=== PATIENT | female | born 1985 | race Hispanic/Latino ===

== ENCOUNTER 2018-12-18 14:04 | Emergency (ER) | payer OTHER ==
[2018-12-18 16:33] LABS: Urine Blood TRACE (NEG); Urine Glucose NEGATIVE (NEG); Urine Protein NEGATIVE (NEG); Urine Specific Gravity 1.015 (1.005-1.030)
--- NOTE | 2018-12-18 16:43 | RAD REPORT ---
EXAM DESCRIPTION: CT - Abdomen Pelvis Wo Contrast - 12/18/2018 4:27 pm CLINICAL HISTORY: Abdominal pain COMPARISON: None. TECHNIQUE: Axial [address] imaging of the abdomen and pelvis was performed without IV contrast. No IV contrast was given because of allergy, abnormal renal function, patient refusal or physician re quest. No oral contrast administered. All CT scans are performed using dose optimization technique as appropriate and may include automated exposure control or mA/KV adjustment according to patient size. FINDINGS: No suspicious findings in the lung bases. The liver, spleen and pancreas show no suspicious findings on non-contrast imaging. Multi stone smiley lithiasis is present. No wall thickening, edema or other evidence for an acute gallbladder process. N o biliary tree dilatation. No hydronephrosis or suspicious renal mass. No no right flank and the No significant adrenal finding. Isodense renal masses and pyelonephritis cannot be excluded in the absence of IV contrast. Urinary b ladder is fully contracted limiting assessment. Normal-sized uterus is present. IUD is in place and appears well positioned. No left ovarian abnormal ity seen. In the right side adnexae extending into the midline upper pelvis there is a large 13 x 10 x 9 centimeter mass. This is predominantly cystic. Fat and calcification components are present. Mini mal amount of free fluid is present in the cul-de-sac. No dilated bowel loops or bowel wall thickening. No free air, free fluid or inflammatory stranding. N o bulky lymphadenopathy. There is a small fat only umbilical hernia. Fat extends into the lower abdom inal wall musculature. No appendicitis findings. No suspicious bony findings. 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 Th is fills much of the pelvis. Minimal free fluid in the pelvis is present and not outside of physiologic limits. This could be seco ndary fluid from the dermoid/teratoma. No acute GI or process seen. Patient does have multi stone cholelithiasis without active gallbladd er process identifiable.
--- NOTE | 2018-12-18 17:08 | ER ---
Nurse's Notes [facility] Name: Judith Malagon Age: 33 yrs Sex: Female : 1985 Arrival Date: 12/18/2018 Time: 14:07 Bed Treatment Private MD: Diagnosis: Abdominal and pelvic pain Presentation: 12/18 14:11 Presenting complaint: Patient states: i have this lower stomach pain that started tw2 Friday and i went to [facility] and they put on antibiotics Cefelexin, Zofran, Naproxen, and it has gotten worse, and my low back is hurting, it hurts below my belly button and my back, he said there wasn't a whole lot of bacteria in my urine, but it is worse when i stand up, i have been getting by with a heating bad, no urinary symptoms now and didn't have any when i went to [facility] either. Transition of care: patient was not received from another setting of care. Onset of symptoms was December 18, 2018. Risk Assessment: Do you want to hurt yourself or someone else? Patient reports no desire to harm self or others. Initial Sepsis Screen: Does the patient meet any 2 criteria? No. Patient's initial sepsis screen is negative. Does the patient have a suspected source of infection? No. Patient's initial sepsis screen is negative. Care prior to arrival: None. 14:11 Method Of Arrival: Ambulatory tw2 14:11 Acuity: LUCI 3 tw2 Triage Assessment: 14:14 General: Appears in no apparent distress. obese, well groomed, Behavior is calm, tw2 cooperative, appropriate for age. Pain: Complains of pain in suprapubic area, right lower quadrant, left lower quadrant, and back. GI: Reports lower abdominal pain, nausea. Musculoskeletal: Reports pain in lumbar area, low back area and left low back. 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 - Social history:: Smoking status: Patient/guardian denies using tobacco. - Ebola Screening: : Patient denies travel to an Ebola-affected area in the 21 days before illness onset. Screenin:06 Abuse screen: Denies threats or abuse. Denies injuries from another. Nutritional iw screening: No deficits noted. Tuberculosis screening: No symptoms or risk factors identified. Fall Risk None identified. Assessment: 16:59 General: Appears in no apparent distress. Behavior is calm, cooperative. Pain: iw Complains of pain in pelvis. Neuro: Level of Consciousness is awake, alert, obeys commands. 17:05 Cardiovascular: Patient's skin is warm and dry. Respiratory: Respiratory effort is iw even, unlabored, Respiratory pattern is regular, symmetrical. GI: Abdomen is non-distended, Bowel sounds present X 4 quads. Abd is soft X 4 quads Abdomen is tender to palpation in right lower quadrant and left lower quadrant Reports lower abdominal pain. Derm: Skin is intact, is healthy with good turgor. Musculoskeletal: Range of motion: intact in all extremities. Vital Signs: 14:14 BP 137 / 96; Pulse 84; Resp 18; Temp 98.1(O); Pulse Ox 97% on R/A; Weight 128.37 kg tw2 (R); Height 5 ft. 8 in. (172.72 cm) (R); Pain 9/10; 14:14 Body Mass Index 43.03 (128.37 kg, 172.72 cm) tw2 ED Course: 14:07 Patient arrived in ED. rg4 14:14 Triage completed. tw2 14:14 Arm band placed on. tw2 15:38 Radiology exam delayed due to test not completed at this time. vm2 16:23 Damaris Odom FNP-C is PHCP. snw 16:23 Pilo Bray MD is Attending Physician. snw 16:25 CT Abd/Pelvis - Without Cont In Process Unspecified. EDMS 16:28 CT completed. Patient tolerated procedure well. Patient moved to CT. Patient moved back ri from CT. 16:43 Nevin Newby, RN is Primary Nurse. iw 16:59 Patient has correct armband on for positive identification. iw 17:20 No provider procedures requiring assistance completed. Patient did not have IV access iw during this emergency room visit. Administered Medications: No medications were administered Outcome: 17:08 Discharge ordered by MD. euceda 17:20 Discharged to home ambulatory. iw 17:20 Condition: good 17:20 Discharge instructions given to patient, Instructed on discharge instructions, follow up and referral plans. medication usage, Demonstrated understanding of instructions, follow-up care, medications, Prescriptions given X 1. 17:21 Patient left the ED. iw Signatures: Dispatcher [employer] EDMS Damaris Odom, DIRECTOR BUILDING-C DIRECTOR BUILDING-Csnw Nevin Newby, RN RN iw Nabila Zafar RN RN tw2 Idalmis Tatum4 Rico Peterson [place] 2
--- NOTE | 2018-12-18 17:08 | EDPHYS ---
Physician Documentation [facility] Name: Judith Malagon Age: 33 yrs Sex: Female : 1985 Arrival Date: 12/18/2018 Time: 14:07 Bed Treatment Private MD: ED Physician Pilo Bray HPI: 12/18 20:21 This 33 yrs old Female presents to ER via Ambulatory with complaints of Low snw Back Pain, Abdominal Pain. 20:21 The patient presents with pain that is acute, with no known mechanism of injury. The snw symptoms are located in the low back. Location: right low back and right lower quadrant. The problem was sustained from unknown cause. Onset: The symptoms/episode began/occurred suddenly, 4 day(s) ago, and became persistent. Associated signs and symptoms: The patient has no apparent associated signs or symptoms. Severity of symptoms: At their worst the symptoms were moderate, in the emergency department the symptoms are unchanged. The patient has experienced a previous episode, approximately 5 months ago. The patient has been recently seen by a physician: [facility]. 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 - Social history:: Smoking status: Patient/guardian denies using tobacco. - Ebola Screening: : Patient denies travel to an Ebola-affected area in the 21 days before illness onset. ROS: 20:19 Constitutional: Negative for fever, chills, and weight loss, Eyes: Negative for injury, snw pain, redness, and discharge, ENT: Negative for injury, pain, and discharge, Neck: Negative for injury, pain, and swelling, Cardiovascular: Negative for chest pain, palpitations, and edema, Respiratory: Negative for shortness of breath, cough, wheezing, and pleuritic chest pain, MS/Extremity: Negative for injury and deformity, Skin: Negative for injury, rash, and discoloration, Neuro: Negative for headache, weakness, numbness, tingling, and seizure. 20:19 Abdomen/GI: Positive for abdominal pain, of the right lower quadrant. 20:19 Back: Positive for pain at rest, pain with movement, of the right low back. 20:19 : Positive for was told she had a UTI recently and is taking Keflex and Zofran. Exam: 20:19 Constitutional: This is a well developed, well nourished patient who is awake, alert, snw and in no acute distress. Head/Face: Normocephalic, atraumatic. Eyes: Pupils equal round and reactive to light, extra-ocular motions intact. Lids and lashes normal. Conjunctiva and sclera are non-icteric and not injected. Cornea within normal limits. Periorbital areas with no swelling, redness, or edema. ENT: Nares patent. No nasal discharge, no septal abnormalities noted. Tympanic membranes are normal and external auditory canals are clear. Oropharynx with no redness, swelling, or masses, exudates, or evidence of obstruction, uvula midline. Mucous membranes moist. Neck: Trachea midline, no thyromegaly or masses palpated, and no cervical lymphadenopathy. Supple, full range of motion without nuchal rigidity, or vertebral point tenderness. No Meningismus. Chest/axilla: Normal chest wall appearance and motion. Nontender with no deformity. No lesions are appreciated. Cardiovascular: Regular rate and rhythm with a normal S1 and S2. No gallops, murmurs, or rubs. Normal PMI, no JVD. No pulse deficits. Respiratory: Lungs have equal breath sounds bilaterally, clear to auscultation and percussion. No rales, rhonchi or wheezes noted. No increased work of breathing, no retractions or nasal flaring. Skin: Warm, dry with normal turgor. Normal color with no rashes, no lesions, and no evidence of cellulitis. MS/ Extremity: Pulses equal, no cyanosis. Neurovascular intact. Full, normal range of motion. Neuro: Awake and alert, GCS 15, oriented to person, place, time, and situation. Cranial nerves II-XII grossly intact. Motor strength 5/5 in all extremities. Sensory grossly intact. Cerebellar exam normal. Normal gait. 20:19 Back: pain, that is moderate, of the right low back, radiates around to right lower quadrant. Vital Signs: 14:14 BP 137 / 96; Pulse 84; Resp 18; Temp 98.1(O); Pulse Ox 97% on R/A; Weight 128.37 kg tw2 (R); Height 5 ft. 8 in. (172.72 cm) (R); Pain 9/10; 14:14 Body Mass Index 43.03 (128.37 kg, 172.72 cm) tw2 MDM: 16:56 Patient medically screened. snw 20:00 Special discussion: I discussed with the patient the need to follow-up with the [facility] PCP/specialist for the noted incidental finding on X-ray/CT scanning. pt has a large 13cm dermoid/teratogenic tumor that fills most of her pelvis, pt states she knows of this and is waiting until she gets insurance to have it removed.. 20:13 Data reviewed: vital signs, nurses notes. Data interpreted: Pulse oximetry: on room air snw is 97 %. Interpretation: normal. Counseling: I had a detailed discussion with the patient and/or guardian regarding: the historical points, exam findings, and any diagnostic results supporting the discharge/admit diagnosis, lab results, radiology results, the need for outpatient follow up, to return to the emergency department if symptoms worsen or persist or if there are any questions or concerns that arise at home. Special discussion: Based on the patient's Hx, exam, and Dx evaluation, there is no indication for emergent surgery or inpatient Tx. It is understood by the patient/guardian that if the Sx's persist or worsen they need to return immediately for re-evaluation. Based on the history and exam findings, there is no indication for further emergent testing or inpatient evaluation. I discussed with the patient/guardian the need to see the OB Gyne specialist for further evaluation of the symptoms. 12/18 15:33 Order name: Urine Culture [facility] 12/18 15:33 Order name: Urine Microscopic Only [facility] 12/18 15:33 Order name: CT Abd/Pelvis - Without Cont; Complete Time: 16:45 snw 12/18 15:33 Order name: Urine Test (obtain specimen); Complete Time: 16:54 snw 12/18 16:16 Order name: Urine Dipstick--Ancillary (enter results); Complete Time: 16:35 eb 12/18 16:16 Order name: Urine --Ancillary (enter results); Complete Time: 16:35 eb 12/18 15:33 Order name: Urine Dipstick-Ancillary (obtain specimen); Complete Time: 16:54 snw Administered Medications: No medications were administered Disposition: 12/18/18 17:08 Discharged to Home. Impression: Abdominal and pelvic pain. - Condition is Stable. - Discharge Instructions: Abdominal Pain, Adult, Back Pain, Adult, Pelvic Pain, Female. - Prescriptions for orphenadrine citrate 100 mg Oral Tablet Sustained Release - take 1 tablet by ORAL route 2 times per day As needed; 20 tablet. - Work release form, Medication Reconciliation Form, Thank You Letter, Antibiotic Education, Prescription Opioid Use form. - Follow up: Private Physician; When: 1 week; Reason: Recheck today's complaints, Continuance of care, Re-evaluation by your physician. Follow up: Emergency Department; When: As needed; Reason: Worsening of condition. 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 Signatures: Dispatcher [employer] EDUT Pilo Bray MD MD [facility] Damaris Odom, DRIVER LICENSE TECHNICIAN-C DRIVER LICENSE TECHNICIAN-Csnw Nevin Newby, RAMON RN iw Nabila Zafar RN RN tw2 Corrections: (The following items were deleted from the chart) 12/18 17:21 17:08 12/18/2018 17:08 Discharged to Home. Impression: Abdominal and pelvic pain. iw Condition is Stable. Forms are Medication Reconciliation Form, Thank You Letter, Antibiotic Education, Prescription Opioid Use. Follow up: Private Physician; When: 1 week; Reason: Recheck today's complaints, Continuance of care, Re-evaluation by your physician. Follow up: Emergency Department; When: As needed; Reason: Worsening of condition. snw
[2018-12-18 17:33] LABS: Urine Bacteria 20-50 /HPF (<20); Urine Culture Reflex Order NOT NEEDED; Urine RBC <5 /HPF (NONE SEEN)
== END 2018-12-18 17:21 | disposition home or self-care (01) ==
LOC: ER 14:04
DX: R10.2 Pelvic and perineal pain (principal); I10 Essential (primary) hypertension
CPT/HCPCS: 74176; 81003; 81015; 81025; 87086; 87088; 99284

== ENCOUNTER 2020-03-31 03:19 | Emergency (ER) | payer OTHER ==
--- OUTSIDE RECORDS SUMMARY | 2020-03-31 03:22 | XMS REPORT | Continuity of Care Document ---
:1985 Author Organization [facility] t Address [address] [place] [address] Care Team Providers Name Role Phone Jessica Corcoran RN Attending Clinician Eulalio BECK Attending Clinician Danis BECK Attending Clinician Danis BECK Admitting Clinician Problems This patient has no known problems. Allergies, Adverse Reactions, Alerts This patient has no known allergies or adverse reactions. Medications This patient has no known medications. Procedures This patient has no known procedures. Encounters Start End Encounter Admission Attending Care Care Encounter Source Date/Time Date/Time Type Type Clinicians Facility Department ID 2019-04-27 2019-04-27 Transition La Corcoran [id number] 00:00:00 00:00:00 of Care Farnaz Nair [id number] [place] [id number] 2019-04-25 2019-04-25 [facility] Steven Tsai [facility] [id number] 01:55:38 13:23:00 Encounter Gerardo Moscoso [id number] [place]irst[place] [id number] Surgical [id number] [place] [id number] Results This patient has no known results.
[2020-03-31] MEDS ORDERED: ONDANSETRON 4 MG/2 ML VIAL ONE (04:46)
[2020-03-31] MEDS ORDERED: MORPHINE 2 MG/ML SYR ONE (04:46)
[2020-03-31 04:48] LABS: Absolute Lymphocytes (CBC) 1.3 K/uL (0.7-4.9); Basophils % 0.3 % (0-1.3); Hematocrit 38.2 % (36.0-45.0); Lymphocytes % 16.1 % (15.3-44.8); MPV 9.5 fL (7.6-11.3); Protime INR 0.9; RBC Red Blood Cell Count 4.25 M/uL (3.86-4.86)
[2020-03-31 05:02] LABS: Urine Blood NEGATIVE (NEG); Urine Glucose NEGATIVE (NEG); Urine Protein NEGATIVE (NEG)
[2020-03-31 05:02] LABS: ALT/SGPT 51 U/L (12-78); AST/SGOT 20 U/L (15-37); Albumin 3.9 g/dL (3.4-5.0); Alkaline Phosphatase 66 U/L (45-117); BUN Blood Urea Nitrogen 14 mg/dL (7-18); Bicarbonate 27 mmol/L (21-32); Bilirubin Direct < 0.1 mg/dL (0-0.2); Bilirubin Total 0.3 mg/dL (0.2-1.0); Creatine Phosphokinase 99 U/L (26-192); Glucose Level 121 mg/dL (74-106); Lipase 134 U/L (73-393); Magnesium 2.2 mg/dL (1.8-2.4); NT PRO-BNP 64 pg/mL (<125); Potassium 3.9 mmol/L (3.5-5.1); Protein, Total 8.1 g/dL (6.4-8.2); Sodium Level 140 mmol/L (136-145); Troponin (Emerg Dept Use Only) < 0.02 ng/mL (0.0-0.045)
--- NOTE | 2020-03-31 07:18 | ER ---
Nurse's Notes [facility] Name: Judith Malagon Age: 34 yrs Sex: Female : 1985 Arrival Date: 03/31/2020 Time: 03:46 Bed 18 Private MD: Diagnosis: Chest pain, unspecified;Cholelithiasis Presentation: 03/31 03:56 Chief complaint: Patient states: woke up around 1:30 with chest pain radiating to the wh back. Coronavirus screen: Client denies travel out of the [place] in the last 14 days. At this time, the client does not indicate any symptoms associated with coronavirus-19. Ebola Screen: Patient negative for fever greater than or equal to 101.5 degrees Fahrenheit, and additional compatible Ebola Virus Disease symptoms Patient denies exposure to infectious person. Initial Sepsis Screen: Does the patient meet any 2 criteria? No. Patient's initial sepsis screen is negative. Does the patient have a suspected source of infection? No. Patient's initial sepsis screen is negative. Risk Assessment: Do you want to hurt yourself or someone else? Patient reports no desire to harm self or others. Onset of symptoms was March 31, 2020. 03:56 Method Of Arrival: Ambulatory 03:56 Acuity: LUCI 3 Triage Assessment: 03:59 GI: Reports. 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 - Social history:: Smoking status: Patient uses alcohol, occasionally. Patient/guardian denies using. Screenin:58 Abuse screen: Denies threats or abuse. Denies injuries from another. Nutritional screening: No deficits noted. Tuberculosis screening: No symptoms or risk factors identified. Fall Risk None identified. Assessment: 04:14 General: Appears in no apparent distress. uncomfortable, obese, Behavior is calm, vc cooperative, appropriate for age. Pain: Complains of pain in right lateral posterior chest and right lateral anterior chest Pain radiates to right mid back Pain currently is 7 out of 10 on a pain scale. Neuro: Level of Consciousness is awake, alert, obeys commands, Oriented to person, place, time, situation, Appropriate for age. 04:14 Cardiovascular: Reports chest pain, nausea, shortness of breath. Respiratory: Airway is vc patent Respiratory effort is even, unlabored, Respiratory pattern is regular, symmetrical. GI: Abdomen is round non-distended, obese, Reports nausea. : No signs and/or symptoms were reported regarding the genitourinary system. EENT: No signs and/or symptoms were reported regarding the EENT system. 05:00 Reassessment: Patient appears in no apparent distress at this time. Patient and/or vc family updated on plan of care and expected duration. Pain level reassessed. Patient is alert, oriented x 3, equal unlabored respirations, skin warm/dry/pink. 05:12 Reassessment: Patient laying on side, HR 54, repositioned to back, new heart rate 72. vc 05:48 Reassessment: Patient is alert, oriented x 3, equal unlabored respirations, skin vc warm/dry/pink. Patient denies pain at this time. Patient states symptoms have improved. 06:42 Reassessment: Patient is alert, oriented x 3, equal unlabored respirations, skin vc warm/dry/pink. Patient denies pain at this time. Patient states feeling better. Patient states symptoms have improved. 07:00 Reassessment: RECD REPORT FROM NEVA NAVARRO. 34YO HF P/W ABD PAIN AND N/V. GALLSTONES bp NOTED ON CT, U/S IN PROCESS AT B/S. VS STABLE, NO ACUTE S/S AT THIS TIME. 07:42 Reassessment: PT D/C HOME AMBULATORY, DX WITH CHOLELITHIASIS. bp Vital Signs: 03:56 BP 114 / 92; Pulse 74; Resp 18; Temp 98.4; Pulse Ox 99% ; Weight 122.47 kg; Height 5 wh ft. 8 in. (172.72 cm); Pain 7/10; 05:12 BP 137 / 80; Pulse 54; Resp 14; Pulse Ox 98% on R/A; vc 05:12 Pulse 72; vc 05:49 Pulse 74; Resp 15; Pain 0/10; vc 06:43 BP 128 / 80; Pulse 61; Resp 18; Temp 97.4; Pulse Ox 100% on R/A; Pain 0/10; vc 07:00 BP 106 / 88; Pulse 51; Resp 20; Pulse Ox 99% ; bp 03:56 Body Mass Index 41.05 (122.47 kg, 172.72 cm) ED Course: 03:46 Patient arrived in ED. bp1 03:50 Dami Haines MD is Attending Physician. mh7 03:58 Triage completed. 03:59 Patient has correct armband on for positive identification. Placed in gown. Bed in low wh position. Call light in reach. Side rails up X 1. lunchroom monitor on. Pulse ox on. NIBP on. 03:59 Arm band placed on right wrist. wh 04:14 Neva Unger, RN is Primary Nurse. vc 04:52 XRAY Chest (1 view) In Process Unspecified. EDMS 06:15 CT Chest For PE Angio In Process Unspecified. EDMS 07:00 Primary Nurse role handed off by Neva Unger, RAMON bp 07:00 Leonid Vaughn, RAMON is Primary Nurse. bp 07:16 Moris Barfield MD is Referral Physician. mh7 07:18 US Abdomen Limited In Process Unspecified. EDMS 07:42 No provider procedures requiring assistance completed. IV discontinued, intact, bp bleeding controlled, No redness/swelling at site. Pressure dressing applied. Administered Medications: 04:48 Drug: Zofran (Ondansetron) 4 mg Route: IVP; Site: right antecubital; vc 05:49 Follow up: Response: No adverse reaction; Nausea is decreased vc 04:48 Drug: morphine 2 mg Route: IVP; Site: right antecubital; vc 05:48 Follow up: Response: No adverse reaction; Pain is decreased; Patient states pain is vc gone. Intake: Outcome: 07:17 Discharge ordered by . mh7 07:42 Discharged to home ambulatory. bp 07:42 Condition: stable 07:42 Discharge instructions given to patient, Instructed on discharge instructions, follow up and referral plans. medication usage, Demonstrated understanding of instructions, follow-up care, medications, Prescriptions given X 3. 07:43 Patient left the ED. bp Signatures: Dispatcher [employer] EDMS Denilson Fournier Leonid Vaughn RN RN bp Neva Unger RN RN vc Nisreen Caro [facility] Dami Haines MD MD 7 Corrections: (The following items were deleted from the chart) 05:50 05:45 Pulse 72bpm; vc vc 05:50 05:12 Reassessment: Patient laying on side, HR 54, repositioned to back, new heart rate vc 74 vc
--- NOTE | 2020-03-31 07:18 | EDPHYS ---
Physician Documentation [facility] Name: Judith Malagon Age: 34 yrs Sex: Female : 1985 Arrival Date: 03/31/2020 Time: 03:46 Bed 18 Private MD: ED Physician Dami Haines HPI: 03/31 04:34 This 34 yrs old Female presents to ER via Ambulatory with complaints of mh7 Nausea/Vomiting, Chest Pain. 04:35 The patient or guardian reports chest pain that is located primarily in the anterior mh7 chest wall, right. The pain radiates to right back. Associated signs and symptoms: Pertinent positives: nausea, vomiting, Pertinent negatives: abdominal pain, cough, diaphoresis, dizziness, headache, lower extremity pain, lower extremity swelling, lightheadedness, near syncope, palpitations, recent travel, shortness of breath, syncope. The chest pain is described as sharp. Duration: The patient or guardian reports multiple episodes, that are intermittent, that wax and wane, with no pattern. Modifying factors: The symptoms are alleviated by nothing. the symptoms are aggravated by nothing. Severity of pain: At its worst the pain was moderate today, in the emergency department the pain has improved moderately. 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 - Social history:: Smoking status: Patient uses alcohol, occasionally. Patient/guardian denies using. ROS: 04:35 Constitutional: Negative for fever, chills, and weight loss, Eyes: Negative for injury, mh7 pain, redness, and discharge, ENT: Negative for injury, pain, and discharge, Neck: Negative for injury, pain, and swelling, Respiratory: Negative for shortness of breath, cough, wheezing, and pleuritic chest pain, Back: Negative for injury and pain, : Negative for injury, bleeding, discharge, and swelling, MS/Extremity: Negative for injury and deformity, Skin: Negative for injury, rash, and discoloration, Neuro: Negative for headache, weakness, numbness, tingling, and seizure, Psych: Negative for depression, anxiety, suicide ideation, homicidal ideation, and hallucinations, Allergy/Immunology: Negative for hives, rash, and allergies, Endocrine: Negative for neck swelling, polydipsia, polyuria, polyphagia, and marked weight changes, Hematologic/Lymphatic: Negative for swollen nodes, abnormal bleeding, and unusual bruising. Exam: 04:35 Constitutional: This is a well developed, well nourished patient who is awake, alert, mh7 and in no acute distress. Head/Face: Normocephalic, atraumatic. Neck: Trachea midline, no thyromegaly or masses palpated, and no cervical lymphadenopathy. Supple, full range of motion without nuchal rigidity, or vertebral point tenderness. No Meningismus. Chest/axilla: Normal chest wall appearance and motion. Nontender with no deformity. No lesions are appreciated. Cardiovascular: Regular rate and rhythm with a normal S1 and S2. No gallops, murmurs, or rubs. Normal PMI, no JVD. No pulse deficits. Respiratory: Lungs have equal breath sounds bilaterally, clear to auscultation and percussion. No rales, rhonchi or wheezes noted. No increased work of breathing, no retractions or nasal flaring. Abdomen/GI: Soft, non-tender, with normal bowel sounds. No distension or tympany. No guarding or rebound. No evidence of tenderness throughout. Back: No spinal tenderness. No costovertebral tenderness. Full range of motion. Skin: Warm, dry with normal turgor. Normal color with no rashes, no lesions, and no evidence of cellulitis. MS/ Extremity: Pulses equal, no cyanosis. Neurovascular intact. Full, normal range of motion. Neuro: Awake and alert, GCS 15, oriented to person, place, time, and situation. Cranial nerves II-XII grossly intact. Motor strength 5/5 in all extremities. Sensory grossly intact. Cerebellar exam normal. Normal gait. Psych: Awake, alert, with orientation to person, place and time. Behavior, mood, and affect are within normal limits. 07:02 ECG was reviewed by the Attending Physician. [facility] Vital Signs: 03:56 BP 114 / 92; Pulse 74; Resp 18; Temp 98.4; Pulse Ox 99% ; Weight 122.47 kg; Height 5 wh ft. 8 in. (172.72 cm); Pain 7/10; 05:12 BP 137 / 80; Pulse 54; Resp 14; Pulse Ox 98% on R/A; vc 05:12 Pulse 72; vc 05:49 Pulse 74; Resp 15; Pain 0/10; vc 06:43 BP 128 / 80; Pulse 61; Resp 18; Temp 97.4; Pulse Ox 100% on R/A; Pain 0/10; vc 07:00 BP 106 / 88; Pulse 51; Resp 20; Pulse Ox 99% ; bp 03:56 Body Mass Index 41.05 (122.47 kg, 172.72 cm) wh MDM: 04:20 Patient medically screened. [facility] 07:12 Differential diagnosis: acute myocardial infarction, acute pericarditis, anxiety, chest [facility] wall pain, cholecystitis, Cholelithiasis costochondritis, esophagitis, gastritis, gastroesophageal reflux disease (GERD), myocarditis, pancreatitis, peptic ulcer disease, pneumonia, pneumothorax, pulmonary embolus. HEART Score: History: Slightly Suspicious (0), ECG: Normal (0), Age: < or = 45 years (0), Risk Factors: 1 or 2 risk factors (1), [Hypertension] Troponin: < or = 1 x Normal Limit (0), Total Score = 1. Data reviewed: vital signs, nurses notes, lab test result(s), cardiac enzymes, CBC, electrolytes, urinalysis, EKG, radiologic studies, CT scan, plain films, ultrasound. Data interpreted: Pulse oximetry: on room air is 99 %. Interpretation: normal. Counseling: I had a detailed discussion with the patient and/or guardian regarding: the historical points, exam findings, and any diagnostic results supporting the discharge/admit diagnosis, lab results, radiology results, the need for outpatient follow up, to return to the emergency department if symptoms worsen or persist or if there are any questions or concerns that arise at home. Response to treatment: the patient's symptoms have resolved after treatment, the patient's blood pressure is in an acceptable range, mental status has returned to baseline, the patient no longer shows bradycardia, the patient is not short of breath, the patient is not tachycardic, the patient's pain is gone, the patient's temperature has normalized, the patient is now symptom free, patient is well hydrated. 03/31 04:21 Order name: Basic Metabolic Panel [facility] 03/31 04:21 Order name: CBC with Diff 03/31 04:21 Order name: LFT's; Complete Time: 05:36 03/31 04:21 Order name: Magnesium; Complete Time: 05:36 03/31 04:21 Order name: NT PRO-BNP; Complete Time: 05:36 03/31 04:21 Order name: PT-INR; Complete Time: 05:36 03/31 04:21 Order name: Troponin (emerg Dept Use Only); Complete Time: 05:36 03/31 04:21 Order name: XRAY Chest (1 view) 03/31 04:21 Order name: Lipase; Complete Time: 05:36 03/31 04:21 Order name: CPK; Complete Time: 05:36 03/31 04:22 Order name: Basic Metabolic Panel; Complete Time: 05:36 EDMS 03/31 04:22 Order name: CBC with Automated Diff; Complete Time: 05:36 EDMS 03/31 04:57 Order name: Urine Dipstick--Ancillary (enter results); Complete Time: 05:36 tt3 03/31 04:57 Order name: Urine --Ancillary (enter results); Complete Time: 05:36 3 03/31 04:21 Order name: EKG; Complete Time: 04:22 03/31 04:21 Order name: Cardiac monitoring; Complete Time: 04:27 03/31 04:21 Order name: EKG - Nurse/Tech; Complete Time: 04:27 03/31 04:21 Order name: IV Saline Lock; Complete Time: 04:27 03/31 04:21 Order name: Labs collected and sent; Complete Time: 04:27 03/31 04:21 Order name: O2 Per Protocol; Complete Time: 04:27 03/31 04:21 Order name: O2 Sat Monitoring; Complete Time: 04:27 03/31 04:22 Order name: Urine Dipstick-Ancillary (obtain specimen); Complete Time: 04:57 03/31 04:22 Order name: Urine Test (obtain specimen); Complete Time: 04:57 03/31 05:38 Order name: CT Chest For PE Angio 03/31 06:36 Order name: US Abdomen Limited 7 EC:02 Rate is 62 beats/min. Rhythm is regular, Normal Sinus Rhythm. QRS Campbell is Normal. OR mh7 interval is normal. QRS interval is normal. QT interval is normal. No Q waves. T waves are Normal. No ST changes noted. Clinical impression: Normal ECG. Administered Medications: 04:48 Drug: Zofran (Ondansetron) 4 mg Route: IVP; Site: right antecubital; vc 05:49 Follow up: Response: No adverse reaction; Nausea is decreased vc 04:48 Drug: morphine 2 mg Route: IVP; Site: right antecubital; vc 05:48 Follow up: Response: No adverse reaction; Pain is decreased; Patient states pain is vc gone. Disposition: 19:40 Co-signature as Attending Physician, Dami Haines MD. [facility] Disposition: 03/31/20 07:17 Discharged to Home. Impression: Chest pain, unspecified, Cholelithiasis. - Condition is Stable. - Discharge Instructions: Cholelithiasis, [id number]-Hizq, Nonspecific Chest Pain, Sioi-ke-Arww. - Prescriptions for Zofran ODT 4 mg Oral tablet,disintegrating - place 1 tablet by TRANSLINGUAL route every 8 hours As needed; 6 tablet. Bentyl 20 mg Oral Tablet - take 1 tablet by ORAL route every 6 hours As needed; 20 tablet. Tylenol- Codeine #3 300-30 mg Oral Tablet - take 2 tablets by ORAL route every 6 hours As needed; 15 tablet. - Medication Reconciliation Form, Thank You Letter, Antibiotic Education, Prescription Opioid Use form. - Follow up: Private Physician; When: 1 - 2 days; Reason: Worsening of condition, Recheck today's complaints, Continuance of care, Re-evaluation by your physician. Follow up: Moris Barfield MD; When: 2 - 3 days; Reason: Worsening of condition, Recheck today's complaints. - Problem is new. - Symptoms are resolved. Signatures: Dispatcher [employer] EDIN Denilson Fournier Brian, RN RN bp Martha Unger, RN RN Dami Fernando MD MD [facility] Corrections: (The following items were deleted from the chart) 07:43 07:17 03/31/2020 07:17 Discharged to Home. Impression: Chest pain, unspecified; bp Cholelithiasis. Condition is Stable. Forms are Medication Reconciliation Form, Thank You Letter, Antibiotic Education, Prescription Opioid Use. Follow up: Private Physician; When: 1 - 2 days; Reason: Worsening of condition, Recheck today's complaints, Continuance of care, Re-evaluation by your physician. Follow up: Dr. Moris Barfield; When: 2 - 3 days; Reason: Worsening of condition, Recheck today's complaints. Problem is new. Symptoms are resolved. mh7
[2020-03-31 08:06] VITALS: TEMP 97.4
[2020-03-31 08:08] VITALS: BP 106/88; O2SAT 99
--- NOTE | 2020-03-31 08:35 | RAD REPORT ---
EXAM DESCRIPTION: RAD - Chest Single View - 03/31/2020 4:52 am CLINICAL HISTORY: CHEST PAIN Chest pain. COMPARISON: Chest For Pe Angio dated 03/31/2020 FINDINGS: Portable technique limits examination quality. The lungs are grossly clear. The heart is normal in size. No displaced fractures. IMPRESSION: No acute intrathoracic process suspected.
--- NOTE | 2020-03-31 08:43 | RAD REPORT ---
EXAM DESCRIPTION: US - Abdomen Exam Limited - 03/31/2020 7:18 am CLINICAL HISTORY: RUQ Pain COMPARISON: No comparisons FINDINGS: The gallbladder demonstrates several shadowing gallstones. No pericholecystic fluid or gal lbladder wall thickening. The common bile duct is normal measuring 3 mm.. The liver demonstrates no findings of intrahepatic biliary dilatation. IMPRESSION: Cholelithiasis.
--- NOTE | 2020-03-31 10:49 | RAD REPORT ---
EXAM DESCRIPTION: CT Angiography Chest With Intravenous Contrast CLINICAL HISTORY: The patient is 34 years old and is Female; CHEST PAIN TECHNIQUE: Axial computed tomographic angiography images of the chest with intravenous contrast. S agittal and coronal reformatted images were created and reviewed. This CT exam was performed using one or more of the following dose reduction techniques: automated exposure control, adjustment of t he mA and/or kV according to patient size, and/or use of iterative reconstruction technique. MIP reconstructed images were created and reviewed. COMPARISON: No relevant prior studies available. FINDINGS: ARTIFACTS: The exam is suboptimal secondary to motion artifact. PULMONARY ARTERIES: The main pulmonary arteries and proximal segmental branches opacify normally and are without filling defect. The remainder of the pulmonary vessels are not adequately evaluated secondary to motion artifact. AORTA: No acute findings. No thoracic aortic aneurysm. LUNGS: Unremarkable. No mass. No consolidation. PLEURAL SPACE: Unremarkable. No significant effusion. No pneumothorax. HEART: Unremarkable. No cardiomegaly. No significant pericardial effusion. No evidence of RV dysfunction. BONES/JOINTS: No acute fracture. No dislocation. SOFT TISSUES: Unremarkable. LYMPH NODES: Unremarkable. No enlarged lymph nodes. GALLBLADDER AND BILE DUCTS: Several gallstones are present within the gallbladder. Suggestion of mild gallbladder wall thickening is noted. IMPRESSION: 1. The main pulmonary arteries and proximal segmental branches opacify normally and ar e without filling defect. The remainder of the pulmonary vessels are not adequately evaluated seconda ry to motion artifact. No saddle embolus. No findings to suggest right heart strain. 2. Cholelithiasis with findings concerning for cholecystitis. Further evaluation with ultrasound co uld be performed if clinically indicated. Electronically signed by: Magnolia Urbano MD 03/31/2020 6:24 AM CDT Due to temporary technical issues with the PACS/Fluency reporting system, reports are being signed by the in house radiologist without review as a courtesy to ensure prompt reporting. The interpreting r adiologist is fully responsible for the content of the report.
== END 2020-03-31 07:43 | disposition home or self-care (01) ==
LOC: ER 03:19
DX: K80.20 Calculus of gallbladder without cholecystitis without obstruction (principal); I10 Essential (primary) hypertension
CPT/HCPCS: 93005 ×2; 85025; 80048; 36415; 83735; 82550; 81025; 85610; 80076; 81003; 84484; 83690; 83880; 71275; 71045; 76705; 96375; 96374; 99284; Q9967; J2270; J2405

== ENCOUNTER 2020-04-06 05:58 | Emergency (ER) | payer OTHER ==
--- OUTSIDE RECORDS SUMMARY | 2020-04-06 06:00 | XMS REPORT | Continuity of Care Document ---
:1985 Author Organization [facility] t Address [address] [place] [address] Care Team Providers Name Role Phone Jessica [...] 2019-04-27 2019-04-27 Transition [place] [id number] 00:00:00 00:00:00 of Care Farnaz Nair [id number] [place] [id number] 2019-04-25 2019-04-25 [facility] Steven Tsai [facility] [id number] 01:55:38 13:23:00 Encounter Gerardo Moscoso [id number] 3.10 Kirsten [id number] Surgical [id number] [place] [id number] Results This patient has no known results.
[2020-04-06] MEDS ORDERED: MEPERIDINE HCL 50 MG/ML ONE (06:35)
[2020-04-06] MEDS ORDERED: PROMETHAZINE INJ 25 MG/ML AMP ONE (06:35)
[2020-04-06 07:00] LABS: Hematocrit 38.7 % (36.0-45.0); MPV 9.3 fL (7.6-11.3); RBC Red Blood Cell Count 4.28 M/uL (3.86-4.86)
[2020-04-06 07:01] LABS: Absolute Lymphocytes (CBC) 0.8 K/uL (0.7-4.9); Basophils % 0.2 % (0-1.3); Lymphocytes % 10.2 % (15.3-44.8)
[2020-04-06 07:17] LABS: Albumin 3.8 g/dL (3.4-5.0); Bilirubin Direct 0.1 mg/dL (0-0.2); Bilirubin Total 0.4 mg/dL (0.2-1.0); Potassium 4.4 mmol/L (3.5-5.1); Protein, Total 8.1 g/dL (6.4-8.2)
--- NOTE | 2020-04-06 07:24 | ER ---
Nurse's Notes [facility] Name: Judith Malagon Age: 34 yrs Sex: Female : 1985 Arrival Date: 04/06/2020 Time: 06:01 Bed 6 Private MD: Diagnosis: Cholelithiasis;Upper abdominal pain, unspecified Presentation: 04/06 06:07 Chief complaint: Patient states: Pt reports she was diagnosed with gallstones this past ea week and had a follow up appointment today but was rescheduled for Friday. Pt reports he is still having epigastric pain that wraps around to the right side and is vomiting. Coronavirus screen: At this time, the client does not indicate any symptoms associated with coronavirus-19. Ebola Screen: No symptoms or risks identified at this time. Initial Sepsis Screen: Does the patient meet any 2 criteria? No. Patient's initial sepsis screen is negative. Does the patient have a suspected source of infection? No. Patient's initial sepsis screen is negative. Risk Assessment: Do you want to hurt yourself or someone else? Patient reports no desire to harm self or others. Onset of symptoms was April 06, 2020. 06:07 Method Of Arrival: Ambulatory ea 06:07 Acuity: LUCI 3 ea Triage Assessment: 06:19 General: Appears in no apparent distress. Behavior is calm, cooperative. Pain: Denies ea pain. Musculoskeletal: Circulation, motion, and sensation intact. 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 - Social history:: Smoking status: Patient denies any tobacco usage or history of. Screenin:14 Abuse screen: Denies threats or abuse. Nutritional screening: No deficits noted. ea Tuberculosis screening: No symptoms or risk factors identified. Fall Risk None identified. Assessment: 06:20 General: Appears in no apparent distress. Behavior is appropriate for age. Pain: ea Complains of pain in epigastric area Pain radiates to posterior aspect of right lateral abdomen and anterior aspect of right lateral abdomen. Neuro: Level of Consciousness is awake, alert, obeys commands, Oriented to person, place, time, situation. Cardiovascular: Patient's skin is warm and dry. Respiratory: Airway is patent Respiratory effort is even, unlabored, Respiratory pattern is regular, symmetrical. Derm: Skin is pink, warm \T\ dry. 07:39 Reassessment: PT D/C HOME AMBULATORY, DX WITH CHOLELITHIASIS. bp Vital Signs: 06:07 BP 160 / 107; Pulse 98; Resp 20; Temp 98.4; Pulse Ox 100% ; Weight 120.2 kg; Height 5 ea ft. 8 in. (172.72 cm); Pain 9/10; 07:00 BP 145 / 90; Pulse 63; Resp 16; Pulse Ox 100% ; bp 06:07 Body Mass Index 40.29 (120.20 kg, 172.72 cm) ea ED Course: 06:01 Patient arrived in ED. es 06:02 Jamee Patel, RN is Primary Nurse. mt2 06:04 Pedro Luis Chan PA is PHCP. jr8 06:04 Dami Haines MD is Attending Physician. jr8 06:13 Triage completed. ea 06:14 Patient has correct armband on for positive identification. Bed in low position. Call ea light in reach. Side rails up X 1. Pulse ox on. NIBP on. 06:14 Arm band placed on right wrist. Patient placed in an exam room, on a stretcher, on ea pulse oximetry. 06:42 Missed attempt(s): 20 gauge in right forearm. 22 gauge in left forearm. Bleeding ds4 controlled, band aid applied, catheter tip intact. 06:45 Inserted saline lock: 20 gauge in left antecubital area, using aseptic technique. Blood ea collected. 07:23 Moris Barfield MD is Referral Physician. jr8 07:34 Primary Nurse role handed off by Jamee Patel, RAMON bp 07:34 Leonid Vaughn, RAMON is Primary Nurse. bp 07:39 No provider procedures requiring assistance completed. IV discontinued, intact, bp bleeding controlled, No redness/swelling at site. Pressure dressing applied. Administered Medications: 06:51 Drug: Demerol 25 mg {Note: rass 0.} Route: IVP; Site: left antecubital; ea 07:40 Follow up: Response: Pain is decreased bp 06:51 Drug: Promethazine 12.5 mg Route: IVP; Site: left antecubital; ea 07:40 Follow up: Response: Nausea is decreased bp Outcome: 07:24 Discharge ordered by MD. mccabe 07:40 Discharged to home ambulatory. bp 07:40 Condition: stable 07:40 Discharge instructions given to patient, Instructed on discharge instructions, follow up and referral plans. medication usage, Demonstrated understanding of instructions, follow-up care, medications, Prescriptions given X 1. 07:47 Patient left the ED. bp Signatures: Jaylin Tejeda Josh, PA PA jr8 Swanson, Donovan ds4 Celeste Johnson RN RN Leonid Jimenez RN RN bp Jamee Patel RN RN mt2
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
[2020-04-10 20:39] VITALS: BP 160/107; TEMP 98.4; O2SAT 100
== END 2020-04-06 07:47 | disposition home or self-care (01) ==
LOC: ER 05:58
DX: K80.20 Calculus of gallbladder without cholecystitis without obstruction (principal); I10 Essential (primary) hypertension
CPT/HCPCS: 85025; 80048; 36415; 80076; 83690; 96375; 96374; 99284; J2550; J2175

== ENCOUNTER 2020-04-18 07:49 | Day surgery (SDC) | payer OTHER ==
[2020-04-12 15:59] LABS: Albumin 4.1 g/dL (3.4-5.0); Bilirubin Direct 0.1 mg/dL (0-0.2); Bilirubin Total 0.6 mg/dL (0.2-1.0); Protein, Total 8.5 g/dL (6.4-8.2)
--- OUTSIDE RECORDS SUMMARY | 2020-04-18 07:52 | XMS REPORT | Continuity of Care Document ---
:1985 Author Organization [facility] t Address [address] [place] [address] Care Team Providers Name Role Phone Jessica [...] 2019-04-27 2019-04-27 Transition [place] [id number] 00:00:00 00:00:00 of Care Farnaz Nair [id number] [place] [phone] [facility] 2019-04-25 2019-04-25 [facility] Steven Tsai [facility] [id number] 01:55:38 13:23:00 Encounter Gerardo Moscoso [id number] 3.10 [place] [id number] Surgical [phone] [place] [id number] Results This patient has no known results.
[2020-04-18] MEDS ORDERED: Ringers Lactate 1,000 ML IV ONE (08:16)
[2020-04-18] MEDS: CEFOXITIN/SWI 1gm 1 GM/10 ML SYR ONE ×2 (08:28→10:00)
[2020-04-18] MEDS ORDERED: FENTANYL CITR 100 MCG/2 ML ONE ×2 (08:37→10:33)
[2020-04-18] MEDS ORDERED: LIDOCAINE 1% MPF 5 ML VIAL ONE (08:37)
[2020-04-18] MEDS ORDERED: propofoL 200 MG/20 ML VIAL IV ONE (08:37)
[2020-04-18] MEDS ORDERED: MIDAZOLAM HCL 2 MG/2 ML INJ ONE (08:37)
[2020-04-18] MEDS ORDERED: ROCURONIUM 50 MG/5 ML VIAL IV ONE (08:38)
[2020-04-18] MEDS: BUPIVACAINE 0.5% PF 10 ML VIAL ONE ×2 (08:49→10:20)
[2020-04-18] MEDS ORDERED: dexAMETHasone 10 MG/ML VIAL ONE (10:25)
[2020-04-18] MEDS ORDERED: KETOROLAC 30 MG/ML INJ ONE (10:25)
[2020-04-18] MEDS ORDERED: ONDANSETRON 4 MG/2 ML VIAL ONE ×2 (10:32→12:15)
[2020-04-18] MEDS ORDERED: GLYCOPYRROLATE 0.2 MG/ML SYR ONE (11:11)
[2020-04-18] MEDS ORDERED: NEOSTIGMINE 1 MG/ML -5 ML ONE (11:12)
[2020-04-18 11:36] VITALS: O2SAT 100
[2020-04-18] MEDS: HYDROMORPHONE HCL 1 MG/ML INJ ONE ×2 (11:58→12:03)
--- NOTE | 2020-04-18 12:02 | OP ---
Date of Procedure: 04/18/2020 Surgeon: Moris Barfield MD Assistant Clinical Nurse Manager: ENOCH Puentes. Preoperative Diagnosis: Symptomatic cholelithiasis. Postoperative Diagnosis: Symptomatic cholelithiasis. Procedure Performed: Laparoscopic cholecystectomy. Estimated Blood Loss: Minimal. Specimen: Gallbladder. Finding: As above. Anesthesia: General. Complications: None. The patient tolerated the procedure in stable condition, taken to Recovery in good general condition. Procedure In Detail: The patient was brought to the OR and placed in supine position. General anest hesia begun. Patient was prepped and draped in usual sterile fashion. Marcaine 0.5% was infiltrated locally. A 1 5-blade was used to make a 1 cm supraumbilical midline incision. Subcutaneous tissues were divided. Fascia was identified and divided. #1 Vicryl and stay suture was placed. Peritoneal cavity was ent ered with blunt dissection. A 12-mm trocar was placed into the peritoneal cavity under direct vision . Pneumoperitoneum was established. Then, three 5 trocars were placed, 1 in the epigastrium just to the right of midline and 2 in the right subcostal region. Laparoscopy revealed thick walled gallbla dder consistent with chronic cholecystitis and cholelithiasis. Fundus was retracted superiorly. Inf undibulum was identified and retracted inferolaterally. Cystic duct and cystic artery were clearly i dentified with blunt dissection. Clips were placed. Both structures were divided. Cautery was used to remove the gallbladder from the liver bed. Bleeding in the liver bed was controlled with cautery . There was some oozing noted and Surgicel was utilized at the end of the case as a second measure t o make sure there was no oozing noted. Then after irrigation was done, the bleeding was under contro l, the effluent was clear. All trocars were removed under direct vision. Stay sutures were tied to each other to reapproximate the fascial defect. Subcutaneous wounds were irrigated. Bleeding was co ntrolled with cautery. 2-0 chromic was used to reapproximate subcutaneous tissue and close the skin. Sterile dressing was applied. Patient was awakened and taken to Recovery in good general condition . Discharge Note: The patient will go to Day Surgery and home when stable Disposition: Home. Condition: Stable. Discharge Instructions: Resume home medications and diet. Activity as tolerated. No heavy lifting. Remove outer dressing in 2 days. Shower. Keep wound clean and dry. Keep Steri-Strips on at all t imes. Follow up in my office in 1 week. Call for appointment. Tylenol No. 3 one tablet p.o. q.4 p. r.n. pain. /MODL Voice ID: [id number] Report ID: [id number]
[2020-04-18] MEDS ORDERED: HYDROCODONE/APAP 7.5/325 MG TAB ONE (12:46)
[2020-04-18 14:05] VITALS: BP 162/89; TEMP 97
== END 2020-04-18 13:20 | disposition home or self-care (01) ==
LOC: PRE 07:49
PROVIDERS: ATTEND Surgery
PROC: 0FT44ZZ Resection of Gallbladder, Percutaneous Endoscopic Approach (ICD-10-PCS; principal; 2020-04-18 09:00)
DX: K80.10 Calculus of gallbladder with chronic cholecystitis without obstruction (principal); Z20.828 Contact with and (suspected) exposure to other viral communicable diseases
CPT/HCPCS: 36415; 82150; 81025; 80076; 88304; 47562; U0002; J2704; J2250; J3010 ×2; J1100; J1170; J2710; J7120; J2405 ×2